=== PATIENT | female | born 1950 | race Two or more races ===

== ENCOUNTER 2021-05-10 21:01 | Inpatient (IN) | payer MEDICAID ==
[~2021-05-10] VITALS: Ht 152.4 cm; Wt 90.9 kg
[2021-05-10] MEDS ORDERED: enalapril PO (21:06)
[2021-05-10] MEDS ORDERED: METO50 PO (21:06)
[2021-05-10] MEDS ORDERED: insulin SQ (21:06)
[2021-05-10] MEDS ORDERED: SODIUM CHLORIDE 0.9% 1,000 ML IV ONE ×2 (22:30→23:00)
[2021-05-10] MEDS ORDERED: ONDANSETRON HCL 4 MG/2 ML VIAL IVP ONE (22:30)
[2021-05-10 22:35] LABS: BASOPHILS % (AUTO) 0.3 % (0.0-2.0); EOSINOPHILS % (AUTO) 0.4 % (1.0-6.0); HEMATOCRIT 43.6 % (36-46); HEMOGLOBIN 14.7 g/dL (12.0-16.0); LYMPHOCYTES # (AUTO) 1.4 K/uL (1.0-4.8); LYMPHOCYTES % (AUTO) 11.8 % (22.0-44.0); MEAN CORPUSCULAR HEMOGLOBIN 30.9 pg (26.0-34.0); MEAN CORPUSCULAR HGB CONC 33.6 G/dL (31.0-37.0); MEAN CORPUSCULAR VOLUME 92 fL (80-100); MONOCYTES # (AUTO) 0.8 K/uL (0.1-1.0); MONOCYTES % (AUTO) 6.5 % (2.0-9.0); NEUTROPHILS # (AUTO) 9.9 K/uL (1.8-7.7); PLATELET COUNT (AUTO) 198 K/uL (150-450); RED BLOOD CELL COUNT(AUTO) 4.74 MIL/uL (4.00-5.20); RED CELL DISTRIBUTION WIDTH 12.4 % (11.5-14.5)
[2021-05-10 22:52] LABS: ALANINE AMINOTRANSFERASE 22 U/L (12-78); ALBUMIN 3.6 g/dL (3.4-5.0); ALKALINE PHOSPHATASE 127 U/L (46-116); ANION GAP 11 mmol/L (8-16); ASPARTATE AMINOTRANSFERASE 18 U/L (15-37); BILIRUBIN,TOTAL 0.4 mg/dL (0.1-1.0); CALCIUM, TOTAL 9.7 mg/dL (8.8-10.5); CARBON DIOXIDE 26 mmol/L (22-29); CHLORIDE 95 mmol/L (98-107); CREATININE 1.67 mg/dL (0.60-1.30); GLOMERULAR FILTR. RATE CALC 30 mL/min (>60); POTASSIUM 4.4 mmol/L (3.5-5.1); SODIUM SERUM 132 mmol/L (136-145); TOTAL PROTEIN, SERUM 8.8 g/dL (6.4-8.2); UREA NITROGEN, BLOOD 41 mg/dL (7-18)
[2021-05-10 22:54] LABS: GLUCOSE,RANDOM 485 mg/dL (70-110)
[2021-05-10] MEDS ORDERED: INSULIN REGULAR, HUMAN 100 UNITS/ML IVP ONE (23:00)
[2021-05-10 23:16] LABS: LIPASE 13770 U/L (73-393)
[2021-05-10] MEDS ORDERED: ACETAMINOPHEN 325 MG TABLET PO PRN (23:30)
[2021-05-10 23:31] LABS: APPEARANCE,URINE CLEAR (CLEAR); BACTERIA,URINE Few /HPF (None Seen); BILIRUBIN,URINE NEGATIVE (NEGATIVE); GLUCOSE, URINE (UA) >=1000 mg/dL (NEGATIVE); KETONES,URINE 15 mg/dL (NEGATIVE); LEUKOCYTE ESTERASE ,URINE NEGATIVE (NEGATIVE); NITRATE,URINE POSITIVE (NEGATIVE); OCCULT BLOOD,URINE TRACE (NEGATIVE); PROTEIN,URINE POS 1+ (NEGATIVE); RBC,URINE 0-2 /HPF (0-2); UROBILINOGEN,URINE 0.2 mg/dL (<=1.0)
[2021-05-10 23:33] LABS: COVID AG,FIA SOURCE NASOPHARYNGEAL
[2021-05-10] MEDS: HYDROmorphone 2 MG/ML VIAL IVP PRN (23:33)
[2021-05-10] MEDS ORDERED: HYDROmorphone 2 MG/ML VIAL IVP ONE (23:45)
[2021-05-10 23:46] LABS: GLUCOMETER DEV NAME(LOC) ERT.5; GLUCOSE,POINT OF CARE 407 MG/DL (70-110)
[2021-05-11] MEDS ORDERED: AZITHROMYCIN 500 MG/NS 250 ML IV ONE (00:30)
[2021-05-11] MEDS ORDERED: CefTRIAXone 1 GM/DEXTROSE 50 ML IV ONE (00:30)
[2021-05-11] MEDS ORDERED: SODIUM CHLORIDE 0.9% 1,000 ML IV ONE (00:30)
[2021-05-11 01:06] LABS: GLUCOMETER DEV NAME(LOC) ERT.5; GLUCOSE,POINT OF CARE 385 MG/DL (70-110)
[2021-05-11 03:30] LABS: INFLUENZA TYPE A NEGATIVE FOR TYPE A (NEGATIVE); INFLUENZA TYPE B NEGATIVE FOR TYPE B (NEGATIVE)
[2021-05-11] MEDS ORDERED: ONDANSETRON HCL 4 MG/2 ML VIAL IVP ONE ×2 (04:00→22:26)
[2021-05-11] MEDS ORDERED: ONDANSETRON HCL 4 MG/2 ML VIAL IVP PRN (04:00)
[2021-05-11 06:26] LABS: GLUCOMETER DEV NAME(LOC) ERT.5; GLUCOSE,POINT OF CARE 405 MG/DL (70-110)
[2021-05-11] MEDS: HYDROmorphone 2 MG/ML VIAL IVP PRN (07:52)
[2021-05-11] MEDS ORDERED: INSULIN LISPRO 100 UNITS/ML SQ ONE (08:30)
[2021-05-11 08:36] LABS: GLUCOSE,POINT OF CARE 376 MG/DL (70-110)
[2021-05-11 08:54] VITALS: BP 157/88
[2021-05-11] MEDS ORDERED: INSULIN GLARGINE,HUM.REC.ANLOG 100 UNITS/ML SQ SCH (09:00)
[2021-05-11] MEDS ORDERED: RINGERS SOLUTION,LACTATED 1,000 ML IV ONE ×2 (09:06→14:57)
[2021-05-11] MEDS ORDERED: BUPIVACAINE 0.25%/EPI 1:200,000/PF 10 ML VIAL ONE ×3 (10:05→12:24)
[2021-05-11] MEDS ORDERED: SODIUM CHLORIDE 0.9% 1,000 ML ONE ×3 (10:05→13:23)
[2021-05-11] MEDS ORDERED: IOHEXOL 240 MG/ML 20 ML VIAL ONE ×2 (10:08→12:24)
[2021-05-11] MEDS ORDERED: PIPERACILLIN SODIUM/TAZOBACTAM 3.375 GM/VIAL TP ONE (10:15)
[2021-05-11 10:26] LABS: GLUCOMETER DEV NAME(LOC) SDS.; GLUCOSE,POINT OF CARE 400 MG/DL (70-110)
[2021-05-11] MEDS ORDERED: INSULIN REGULAR, HUMAN 100 UNITS/ML SQ ONE (10:30)
[2021-05-11] MEDS ORDERED: PIPERACILLIN/TAZO 3.375 GM/D5W 50 ML IV ONE (10:45)
[2021-05-11 11:13] VITALS: BP 135/50
[2021-05-11] MEDS ORDERED: FentaNYL CITRATE PF 100 MCG/2 ML VIAL IVP ONE (12:00)
[2021-05-11] MEDS: RINGERS SOLUTION,LACTATED 1,000 ML IV SCH ×2 (12:27→17:17)
[2021-05-11] MEDS ORDERED: SODIUM CHLORIDE 0.9% 250 ML IV ONE (12:33)
[2021-05-11] MEDS ORDERED: ENAL-90 PO (13:26)
[2021-05-11 14:01] LABS: GLUCOMETER DEV NAME(LOC) 6N.1; GLUCOSE,POINT OF CARE 298 MG/DL (70-110)
[2021-05-11] MEDS ORDERED: HYDROmorphone 2 MG/ML VIAL IVP PRN (14:45)
[2021-05-11] MEDS ORDERED: FentaNYL CITRATE PF 100 MCG/2 ML VIAL IVP PRN (14:45)
[2021-05-11] MEDS ORDERED: SUGAMMADEX SODIUM 200 MG/2 ML VIAL IVP ONE (14:58)
[2021-05-11] MEDS ORDERED: OxyCODONE HCL 5 MG IR TABLET PO PRN (15:30)
[2021-05-11 16:17] VITALS: BP 137/75
[2021-05-11] MEDS: ACETAMINOPHEN 500 MG TABLET PO SCH ×2 (17:14→21:15)
[2021-05-11 19:46] LABS: GLUCOMETER DEV NAME(LOC) 6N.1; GLUCOSE,POINT OF CARE 312 MG/DL (70-110)
[2021-05-11] MEDS: OXYGEN THERAPY IH SCH (20:00)
[2021-05-11] MEDS ORDERED: DEXTROSE 50%-WATER 25 GM/50 ML SYRINGE IVP PRN (20:15)
[2021-05-11] MEDS: INSULIN GLARGINE,HUM.REC.ANLOG 100 UNITS/ML SQ SCH (21:16)
[2021-05-11] MEDS: INSULIN LISPRO 100 UNITS/ML SQ PRN (21:16)
[2021-05-11] MEDS ORDERED: ROCURONIUM BROMIDE 10 MG/ML 5 ML VIAL IVP ONE (22:26)
[2021-05-11] MEDS ORDERED: ESMOLOL HCL 10 MG/ML 10 ML VIAL IVP ONE (22:26)
[2021-05-11] MEDS ORDERED: LIDOCAINE/PF 2% 5 ML SYRINGE IVP ONE (22:26)
[2021-05-11] MEDS ORDERED: ALBUTEROL SULFATE HFA 90 MCG/PUFF 8 GM INHALER IH ONE (22:26)
[2021-05-11] MEDS ORDERED: GLYCOPYRROLATE 0.2 MG/ML VIAL IM ONE (22:26)
[2021-05-11] MEDS ORDERED: PROPOFOL 1% 20 ML VIAL IVP ONE (22:26)
[2021-05-12 01:41] LABS: GLUCOMETER DEV NAME(LOC) 6S.1; GLUCOSE,POINT OF CARE 307 MG/DL (70-110)
[2021-05-12 04:53] VITALS: BP 139/61
[2021-05-12] MEDS: RINGERS SOLUTION,LACTATED 1,000 ML IV SCH (05:29)
[2021-05-12] MEDS: INSULIN LISPRO 100 UNITS/ML SQ PRN ×4 (05:30→21:44)
[2021-05-12 07:06] LABS: GLUCOMETER DEV NAME(LOC) 6N.1; GLUCOSE,POINT OF CARE 257 MG/DL (70-110)
[2021-05-12 07:27] VITALS: BP 126/67
[2021-05-12] MEDS: OXYGEN THERAPY IH SCH ×2 (08:00→20:00)
[2021-05-12] MEDS: INSULIN GLARGINE,HUM.REC.ANLOG 100 UNITS/ML SQ SCH ×2 (08:49→21:42)
[2021-05-12] MEDS: ACETAMINOPHEN 500 MG TABLET PO SCH ×3 (08:51→21:40)
[2021-05-12 10:07] LABS: BASOPHILS % (AUTO) 0.4 % (0.0-2.0); EOSINOPHILS % (AUTO) 0.1 % (1.0-6.0); HEMATOCRIT 39.8 % (36-46); HEMOGLOBIN 13.5 g/dL (12.0-16.0); LYMPHOCYTES # (AUTO) 1.1 K/uL (1.0-4.8); LYMPHOCYTES % (AUTO) 7.2 % (22.0-44.0); MEAN CORPUSCULAR HEMOGLOBIN 31.1 pg (26.0-34.0); MEAN CORPUSCULAR HGB CONC 33.9 G/dL (31.0-37.0); MEAN CORPUSCULAR VOLUME 92 fL (80-100); MONOCYTES # (AUTO) 1.2 K/uL (0.1-1.0); NEUTROPHILS % (AUTO) 84.3 % (40.0-70.0); PLATELET COUNT (AUTO) 156 K/uL (150-450); RED BLOOD CELL COUNT(AUTO) 4.35 MIL/uL (4.00-5.20); RED CELL DISTRIBUTION WIDTH 12.8 % (11.5-14.5)
[2021-05-12 10:23] LABS: ALBUMIN 2.6 g/dL (3.4-5.0); CALCIUM, TOTAL 8.1 mg/dL (8.8-10.5); CREATININE 1.33 mg/dL (0.60-1.30); POTASSIUM 4.2 mmol/L (3.5-5.1); TOTAL PROTEIN, SERUM 6.9 g/dL (6.4-8.2)
[2021-05-12 15:41] LABS: GLUCOMETER DEV NAME(LOC) 6N.1; GLUCOSE,POINT OF CARE 356 MG/DL (70-110)
[2021-05-12 16:00] VITALS: BP 123/63
[2021-05-12] MEDS ORDERED: ONDANSETRON HCL 4 MG/2 ML VIAL IM PRN (18:00)
[2021-05-12] MEDS: ONDANSETRON HCL 4 MG/2 ML VIAL IVP PRN (18:16)
[2021-05-12 19:11] LABS: GLUCOMETER DEV NAME(LOC) 6S.1; GLUCOSE,POINT OF CARE 312 MG/DL (70-110)
[2021-05-12 21:05] VITALS: BP 110/70
[2021-05-12 22:46] LABS: GLUCOMETER DEV NAME(LOC) 6N.1; GLUCOSE,POINT OF CARE 283 MG/DL (70-110)
[2021-05-13] MEDS: INSULIN LISPRO 100 UNITS/ML SQ PRN ×4 (05:06→20:55)
[2021-05-13 05:20] VITALS: BP 113/64
[2021-05-13 06:26] LABS: GLUCOMETER DEV NAME(LOC) 6S.1; GLUCOSE,POINT OF CARE 216 MG/DL (70-110)
[2021-05-13 06:53] LABS: BASOPHILS % (AUTO) 0.3 % (0.0-2.0); EOSINOPHILS % (AUTO) 0.4 % (1.0-6.0); HEMATOCRIT 38.8 % (36-46); HEMOGLOBIN 13.3 g/dL (12.0-16.0); LYMPHOCYTES # (AUTO) 1.6 K/uL (1.0-4.8); LYMPHOCYTES % (AUTO) 10.4 % (22.0-44.0); MEAN CORPUSCULAR HEMOGLOBIN 31.5 pg (26.0-34.0); MEAN CORPUSCULAR HGB CONC 34.3 G/dL (31.0-37.0); MEAN CORPUSCULAR VOLUME 92 fL (80-100); MONOCYTES # (AUTO) 1.2 K/uL (0.1-1.0); MONOCYTES % (AUTO) 8.1 % (2.0-9.0); NEUTROPHILS # (AUTO) 12.3 K/uL (1.8-7.7); NEUTROPHILS % (AUTO) 80.8 % (40.0-70.0); PLATELET COUNT (AUTO) 159 K/uL (150-450); RED BLOOD CELL COUNT(AUTO) 4.24 MIL/uL (4.00-5.20); RED CELL DISTRIBUTION WIDTH 12.5 % (11.5-14.5)
[2021-05-13] MEDS: ONDANSETRON HCL 4 MG/2 ML VIAL IVP PRN (07:30)
[2021-05-13 08:00] VITALS: BP 114/65
[2021-05-13] MEDS: OXYGEN THERAPY IH SCH ×2 (08:00→20:00)
[2021-05-13] MEDS: ACETAMINOPHEN 500 MG TABLET PO SCH ×3 (09:37→20:49)
[2021-05-13] MEDS: INSULIN GLARGINE,HUM.REC.ANLOG 100 UNITS/ML SQ SCH ×2 (09:39→20:54)
[2021-05-13] MEDS: SODIUM CHLORIDE 0.45% 1,000 ML IV SCH (15:20)
[2021-05-13] MEDS: CefTRIAXone 1 GM/DEXTROSE 50 ML IV SCH (15:21)
[2021-05-13 16:00] VITALS: BP 97/62
[2021-05-13 20:03] VITALS: BP 117/57
[2021-05-13 22:50] LABS: GLUCOMETER DEV NAME(LOC) 6N.1; GLUCOSE,POINT OF CARE 258 MG/DL (70-110)
[2021-05-13 22:51] LABS: GLUCOMETER DEV NAME(LOC) 6N.1; GLUCOSE,POINT OF CARE 211 MG/DL (70-110)
[2021-05-13 22:51] LABS: GLUCOMETER DEV NAME(LOC) 6N.1; GLUCOSE,POINT OF CARE 257 MG/DL (70-110)
[2021-05-14 04:44] VITALS: BP 124/82
[2021-05-14] MEDS: SODIUM CHLORIDE 0.45% 1,000 ML IV SCH ×2 (05:58→18:59)
[2021-05-14 06:37] LABS: BASOPHILS % (AUTO) 0.4 % (0.0-2.0); EOSINOPHILS % (AUTO) 1.3 % (1.0-6.0); HEMATOCRIT 38.4 % (36-46); HEMOGLOBIN 13.2 g/dL (12.0-16.0); LYMPHOCYTES # (AUTO) 1.8 K/uL (1.0-4.8); LYMPHOCYTES % (AUTO) 12.7 % (22.0-44.0); MEAN CORPUSCULAR HEMOGLOBIN 31.4 pg (26.0-34.0); MEAN CORPUSCULAR HGB CONC 34.5 G/dL (31.0-37.0); MEAN CORPUSCULAR VOLUME 91 fL (80-100); MONOCYTES # (AUTO) 1.4 K/uL (0.1-1.0); MONOCYTES % (AUTO) 9.5 % (2.0-9.0); NEUTROPHILS % (AUTO) 76.1 % (40.0-70.0); PLATELET COUNT (AUTO) 187 K/uL (150-450); RED BLOOD CELL COUNT(AUTO) 4.21 MIL/uL (4.00-5.20); RED CELL DISTRIBUTION WIDTH 12.5 % (11.5-14.5)
[2021-05-14 06:54] LABS: ALBUMIN 2.2 g/dL (3.4-5.0); BILIRUBIN,TOTAL 0.6 mg/dL (0.1-1.0); CALCIUM, TOTAL 8.1 mg/dL (8.8-10.5); CREATININE 1.19 mg/dL (0.60-1.30); POTASSIUM 4.1 mmol/L (3.5-5.1)
[2021-05-14] MEDS: ONDANSETRON HCL 4 MG/2 ML VIAL IVP PRN (07:53)
[2021-05-14] MEDS: ACETAMINOPHEN 500 MG TABLET PO SCH ×3 (07:54→20:22)
[2021-05-14 07:55] VITALS: BP 124/69
[2021-05-14] MEDS: OXYGEN THERAPY IH SCH (08:00)
[2021-05-14] MEDS: INSULIN GLARGINE,HUM.REC.ANLOG 100 UNITS/ML SQ SCH ×2 (09:00→20:27)
[2021-05-14] MEDS ORDERED: SODIUM CHLORIDE 0.9% 100 ML ONE (11:12)
[2021-05-14] MEDS ORDERED: IOHEXOL 350 MG/ML 100 ML VIAL ONE (11:12)
[2021-05-14] MEDS: INSULIN LISPRO 100 UNITS/ML SQ PRN ×3 (12:55→20:28)
[2021-05-14] MEDS: CefTRIAXone 1 GM/DEXTROSE 50 ML IV SCH (15:11)
[2021-05-14 17:21] LABS: GLUCOMETER DEV NAME(LOC) 6S.1; GLUCOSE,POINT OF CARE 86 MG/DL (70-110)
[2021-05-14 17:22] LABS: GLUCOMETER DEV NAME(LOC) 6S.1; GLUCOSE,POINT OF CARE 178 MG/DL (70-110)
[2021-05-14 17:46] LABS: GLUCOMETER DEV NAME(LOC) 6S.1; GLUCOSE,POINT OF CARE 171 MG/DL (70-110)
[2021-05-14 20:11] VITALS: BP 119/67
[2021-05-15] MEDS: ONDANSETRON HCL 4 MG/2 ML VIAL IVP PRN (02:44)
[2021-05-15 03:01] LABS: GLUCOMETER DEV NAME(LOC) 6S.1; GLUCOSE,POINT OF CARE 197 MG/DL (70-110)
[2021-05-15 04:25] VITALS: BP 115/54
[2021-05-15] MEDS: ACETAMINOPHEN 500 MG TABLET PO SCH ×3 (08:09→21:16)
[2021-05-15] MEDS: SODIUM CHLORIDE 0.45% 1,000 ML IV SCH (08:09)
[2021-05-15] MEDS: OXYGEN THERAPY IH SCH ×3 (08:10→20:00)
[2021-05-15 08:17] LABS: GLUCOMETER DEV NAME(LOC) 6N.1; GLUCOSE,POINT OF CARE 106 MG/DL (70-110)
[2021-05-15 08:21] VITALS: BP 137/71
[2021-05-15] MEDS: INSULIN GLARGINE,HUM.REC.ANLOG 100 UNITS/ML SQ SCH ×2 (08:49→21:16)
[2021-05-15] MEDS: INSULIN LISPRO 100 UNITS/ML SQ PRN ×3 (11:42→21:15)
[2021-05-15 12:32] LABS: GLUCOMETER DEV NAME(LOC) 6N.1; GLUCOSE,POINT OF CARE 175 MG/DL (70-110)
[2021-05-15] MEDS: CefTRIAXone 1 GM/DEXTROSE 50 ML IV SCH (14:49)
[2021-05-15 16:27] VITALS: BP 113/63
[2021-05-15 16:32] LABS: BASOPHILS % (AUTO) 0.2 % (0.0-2.0); EOSINOPHILS % (AUTO) 0.5 % (1.0-6.0); HEMATOCRIT 39.1 % (36-46); HEMOGLOBIN 13.1 g/dL (12.0-16.0); LYMPHOCYTES % (AUTO) 6.8 % (22.0-44.0); MEAN CORPUSCULAR HEMOGLOBIN 30.9 pg (26.0-34.0); MEAN CORPUSCULAR HGB CONC 33.5 G/dL (31.0-37.0); MEAN CORPUSCULAR VOLUME 92 fL (80-100); MONOCYTES % (AUTO) 6.4 % (2.0-9.0); RED BLOOD CELL COUNT(AUTO) 4.24 MIL/uL (4.00-5.20); RED CELL DISTRIBUTION WIDTH 12.7 % (11.5-14.5)
[2021-05-15 16:34] LABS: NEUTROPHILS % (AUTO) 86.1 % (40.0-70.0)
[2021-05-15 16:42] LABS: AMYLASE 25 U/L (25-115); LIPASE 46 U/L (73-393)
[2021-05-15 19:59] LABS: PLATELET COUNT (AUTO) 153 K/uL (150-450)
[2021-05-15 20:01] LABS: GLUCOMETER DEV NAME(LOC) 6S.1; GLUCOSE,POINT OF CARE 186 MG/DL (70-110)
[2021-05-15 21:22] VITALS: BP 136/95
[2021-05-15] MEDS: LOPERAMIDE HCL 2 MG CAPSULE PO PRN (21:54)
[2021-05-16 00:26] LABS: GLUCOMETER DEV NAME(LOC) 6N.1; GLUCOSE,POINT OF CARE 178 MG/DL (70-110)
[2021-05-16 01:02] LABS: C.DIFF GDH ANTIGEN, Stool Positive (Negative)
[2021-05-16 01:03] LABS: C.DIFF TOXINS A&B, Stool Positive (Negative)
[2021-05-16] MEDS: SODIUM CHLORIDE 0.45% 1,000 ML IV SCH ×3 (01:48→23:35)
[2021-05-16 04:30] VITALS: BP 125/70
[2021-05-16 08:02] VITALS: BP 114/60
[2021-05-16 08:02] LABS: GLUCOMETER DEV NAME(LOC) 6N.1; GLUCOSE,POINT OF CARE 73 MG/DL (70-110)
[2021-05-16] MEDS: LOPERAMIDE HCL 2 MG CAPSULE PO PRN (08:02)
[2021-05-16] MEDS: ACETAMINOPHEN 500 MG TABLET PO SCH ×3 (08:02→20:22)
[2021-05-16] MEDS: MetroNIDAZOLE 500 MG TABLET PO SCH ×2 (08:02→15:38)
[2021-05-16] MEDS: INSULIN GLARGINE,HUM.REC.ANLOG 100 UNITS/ML SQ SCH ×2 (08:03→20:28)
[2021-05-16] MEDS: OXYGEN THERAPY IH SCH ×2 (08:08→20:00)
[2021-05-16 12:36] LABS: GLUCOMETER DEV NAME(LOC) 6N.1; GLUCOSE,POINT OF CARE 111 MG/DL (70-110)
[2021-05-16 13:30] LABS: BASOPHILS % (AUTO) 0.3 % (0.0-2.0); EOSINOPHILS % (AUTO) 0.4 % (1.0-6.0); HEMATOCRIT 36.2 % (36-46); LYMPHOCYTES # (AUTO) 1.1 K/uL (1.0-4.8); LYMPHOCYTES % (AUTO) 6.5 % (22.0-44.0); MEAN CORPUSCULAR HEMOGLOBIN 30.1 pg (26.0-34.0); MEAN CORPUSCULAR HGB CONC 33.3 G/dL (31.0-37.0); MEAN CORPUSCULAR VOLUME 91 fL (80-100); MONOCYTES % (AUTO) 6.3 % (2.0-9.0); NEUTROPHILS # (AUTO) 14.4 K/uL (1.8-7.7); PLATELET COUNT (AUTO) 232 K/uL (150-450); RED BLOOD CELL COUNT(AUTO) 3.99 MIL/uL (4.00-5.20); RED CELL DISTRIBUTION WIDTH 12.9 % (11.5-14.5)
[2021-05-16 13:31] LABS: NEUTROPHILS % (AUTO) 86.5 % (40.0-70.0)
[2021-05-16] MEDS: CefTRIAXone 1 GM/DEXTROSE 50 ML IV SCH (15:38)
[2021-05-16 16:15] VITALS: BP 94/56
[2021-05-16 17:25] LABS: GLUCOMETER DEV NAME(LOC) 6S.1; GLUCOSE,POINT OF CARE 113 MG/DL (70-110)
[2021-05-16 19:46] VITALS: BP 93/48
[2021-05-16] MEDS: INSULIN LISPRO 100 UNITS/ML SQ PRN (20:28)
[2021-05-16] MEDS: ONDANSETRON HCL 4 MG/2 ML VIAL IVP PRN (20:28)
[2021-05-16 22:16] LABS: GLUCOMETER DEV NAME(LOC) 6N.1; GLUCOSE,POINT OF CARE 203 MG/DL (70-110)
[2021-05-17] MEDS: MetroNIDAZOLE 500 MG TABLET PO SCH ×4 (00:47→23:05)
[2021-05-17 05:12] VITALS: BP 110/60
[2021-05-17] MEDS: INSULIN LISPRO 100 UNITS/ML SQ PRN ×2 (06:12→12:02)
[2021-05-17 06:51] LABS: BASOPHILS % (AUTO) 0.2 % (0.0-2.0); EOSINOPHILS % (AUTO) 1.2 % (1.0-6.0); HEMATOCRIT 36.4 % (36-46); HEMOGLOBIN 12.3 g/dL (12.0-16.0); LYMPHOCYTES # (AUTO) 1.2 K/uL (1.0-4.8); LYMPHOCYTES % (AUTO) 5.7 % (22.0-44.0); MEAN CORPUSCULAR HEMOGLOBIN 30.7 pg (26.0-34.0); MEAN CORPUSCULAR HGB CONC 33.7 G/dL (31.0-37.0); MEAN CORPUSCULAR VOLUME 91 fL (80-100); MONOCYTES # (AUTO) 1.5 K/uL (0.1-1.0); MONOCYTES % (AUTO) 7.2 % (2.0-9.0); NEUTROPHILS # (AUTO) 17.8 K/uL (1.8-7.7); PLATELET COUNT (AUTO) 248 K/uL (150-450); RED BLOOD CELL COUNT(AUTO) 4.01 MIL/uL (4.00-5.20)
[2021-05-17 06:52] LABS: NEUTROPHILS % (AUTO) 85.7 % (40.0-70.0)
[2021-05-17 07:16] LABS: ALBUMIN 1.6 g/dL (3.4-5.0); BILIRUBIN,TOTAL 0.4 mg/dL (0.1-1.0); CALCIUM, TOTAL 7.9 mg/dL (8.8-10.5); CREATININE 1.67 mg/dL (0.60-1.30); POTASSIUM 3.3 mmol/L (3.5-5.1); TOTAL PROTEIN, SERUM 6.2 g/dL (6.4-8.2)
[2021-05-17 07:46] LABS: GLUCOMETER DEV NAME(LOC) 6N.1; GLUCOSE,POINT OF CARE 147 MG/DL (70-110)
[2021-05-17 08:06] VITALS: BP 119/54
[2021-05-17] MEDS ORDERED: POTASSIUM CHLORIDE 20 MEQ ER TABLET PO ONE (08:45)
[2021-05-17] MEDS: LOPERAMIDE HCL 2 MG CAPSULE PO PRN (08:48)
[2021-05-17] MEDS: ACETAMINOPHEN 500 MG TABLET PO SCH ×3 (08:48→20:16)
[2021-05-17] MEDS: INSULIN GLARGINE,HUM.REC.ANLOG 100 UNITS/ML SQ SCH ×2 (08:50→20:16)
[2021-05-17] MEDS: OXYGEN THERAPY IH SCH ×2 (08:58→20:12)
[2021-05-17 12:16] LABS: GLUCOMETER DEV NAME(LOC) 6N.1; GLUCOSE,POINT OF CARE 146 MG/DL (70-110)
[2021-05-17] MEDS: CefTRIAXone 1 GM/DEXTROSE 50 ML IV SCH (15:11)
[2021-05-17] MEDS: SODIUM CHLORIDE 0.45% 1,000 ML IV SCH (15:12)
[2021-05-17 16:14] VITALS: BP 100/57
[2021-05-17 18:47] LABS: GLUCOMETER DEV NAME(LOC) 6N.1; GLUCOSE,POINT OF CARE 138 MG/DL (70-110)
[2021-05-17 20:38] VITALS: BP_SYST 107; BP_SYST 119; BP_DIAS 57; BP_DIAS 69
[2021-05-18 02:51] LABS: GLUCOMETER DEV NAME(LOC) 6S.1; GLUCOSE,POINT OF CARE 81 MG/DL (70-110)
[2021-05-18] MEDS: SODIUM CHLORIDE 0.45% 1,000 ML IV SCH ×2 (04:37→10:11)
[2021-05-18 05:33] VITALS: BP 109/63
[2021-05-18 06:56] LABS: GLUCOMETER DEV NAME(LOC) 6N.1; GLUCOSE,POINT OF CARE 149 MG/DL (70-110)
[2021-05-18] MEDS: OXYGEN THERAPY IH SCH ×2 (08:00→21:20)
[2021-05-18 08:13] VITALS: BP 97/54
[2021-05-18] MEDS: MetroNIDAZOLE 500 MG TABLET PO SCH ×3 (08:38→23:05)
[2021-05-18] MEDS: ACETAMINOPHEN 500 MG TABLET PO SCH ×3 (08:39→21:18)
[2021-05-18] MEDS: INSULIN GLARGINE,HUM.REC.ANLOG 100 UNITS/ML SQ SCH ×2 (08:42→21:00)
[2021-05-18] MEDS: INSULIN LISPRO 100 UNITS/ML SQ PRN (11:27)
[2021-05-18 11:52] LABS: GLUCOMETER DEV NAME(LOC) 6S.1; GLUCOSE,POINT OF CARE 266 MG/DL (70-110)
[2021-05-18 11:52] LABS: GLUCOMETER DEV NAME(LOC) 6S.1; GLUCOSE,POINT OF CARE 61 MG/DL (70-110)
[2021-05-18] MEDS: VANCOMYCIN HCL 125 MG/2.5 ML SOLUTION ORAL.SYG PO SCH ×2 (17:26→21:19)
[2021-05-18 19:45] LABS: GLUCOMETER DEV NAME(LOC) 6N.1; GLUCOSE,POINT OF CARE 99 MG/DL (70-110)
[2021-05-18 20:45] VITALS: BP 117/62
[2021-05-19 00:06] LABS: GLUCOMETER DEV NAME(LOC) 6N.1; GLUCOSE,POINT OF CARE 134 MG/DL (70-110)
[2021-05-19] MEDS: SODIUM CHLORIDE 0.45% 1,000 ML IV SCH (03:35)
[2021-05-19 04:23] VITALS: BP 120/55
[2021-05-19 06:37] LABS: GLUCOMETER DEV NAME(LOC) 6N.2; GLUCOSE,POINT OF CARE 128 MG/DL (70-110)
[2021-05-19 08:00] VITALS: BP 113/60
[2021-05-19] MEDS: OXYGEN THERAPY IH SCH (08:00)
[2021-05-19] MEDS: NYSTATIN 15 GM POWDER BOTTLE TP PRN (08:57)
[2021-05-19] MEDS: ACETAMINOPHEN 500 MG TABLET PO SCH ×3 (08:57→20:48)
[2021-05-19] MEDS: VANCOMYCIN HCL 125 MG/2.5 ML SOLUTION ORAL.SYG PO SCH ×4 (08:57→20:43)
[2021-05-19] MEDS: INSULIN GLARGINE,HUM.REC.ANLOG 100 UNITS/ML SQ SCH ×2 (09:11→21:20)
[2021-05-19 10:35] LABS: BASOPHILS % (AUTO) 0.6 % (0.0-2.0); EOSINOPHILS % (AUTO) 2.1 % (1.0-6.0); HEMATOCRIT 37.2 % (36-46); HEMOGLOBIN 12.3 g/dL (12.0-16.0); LYMPHOCYTES # (AUTO) 1.4 K/uL (1.0-4.8); LYMPHOCYTES % (AUTO) 9.9 % (22.0-44.0); MEAN CORPUSCULAR HEMOGLOBIN 30.4 pg (26.0-34.0); MEAN CORPUSCULAR VOLUME 92 fL (80-100); MONOCYTES % (AUTO) 7.6 % (2.0-9.0); NEUTROPHILS % (AUTO) 79.8 % (40.0-70.0); PLATELET COUNT (AUTO) 338 K/uL (150-450); RED BLOOD CELL COUNT(AUTO) 4.03 MIL/uL (4.00-5.20); RED CELL DISTRIBUTION WIDTH 13.5 % (11.5-14.5)
[2021-05-19 10:49] LABS: ALBUMIN 1.7 g/dL (3.4-5.0); BILIRUBIN,TOTAL 0.3 mg/dL (0.1-1.0); CALCIUM, TOTAL 7.7 mg/dL (8.8-10.5); CREATININE 1.25 mg/dL (0.60-1.30); POTASSIUM 3.9 mmol/L (3.5-5.1); TOTAL PROTEIN, SERUM 6.4 g/dL (6.4-8.2)
[2021-05-19] MEDS: INSULIN LISPRO 100 UNITS/ML SQ PRN ×3 (11:46→21:19)
[2021-05-19 13:06] LABS: GLUCOMETER DEV NAME(LOC) 6N.1; GLUCOSE,POINT OF CARE 281 MG/DL (70-110)
[2021-05-19 13:06] LABS: GLUCOMETER DEV NAME(LOC) 6N.2; GLUCOSE,POINT OF CARE 338 MG/DL (70-110)
[2021-05-19 16:37] VITALS: BP 119/72
[2021-05-19 20:16] LABS: GLUCOMETER DEV NAME(LOC) 6N.2; GLUCOSE,POINT OF CARE 147 MG/DL (70-110)
[2021-05-19 20:50] VITALS: BP 118/67
[2021-05-20 01:46] LABS: GLUCOMETER DEV NAME(LOC) 6N.2; GLUCOSE,POINT OF CARE 321 MG/DL (70-110)
[2021-05-20 04:45] VITALS: BP 127/77
[2021-05-20 07:36] VITALS: BP 123/68
[2021-05-20] MEDS: OXYGEN THERAPY IH SCH ×2 (07:43→20:00)
[2021-05-20] MEDS: VANCOMYCIN HCL 125 MG/2.5 ML SOLUTION ORAL.SYG PO SCH ×4 (09:07→20:55)
[2021-05-20] MEDS: ACETAMINOPHEN 500 MG TABLET PO SCH ×3 (09:07→20:54)
[2021-05-20] MEDS: INSULIN GLARGINE,HUM.REC.ANLOG 100 UNITS/ML SQ SCH ×2 (09:09→21:03)
[2021-05-20] MEDS: INSULIN LISPRO 100 UNITS/ML SQ PRN ×3 (11:21→21:04)
[2021-05-20] MEDS: NYSTATIN 15 GM POWDER BOTTLE TP PRN (11:29)
[2021-05-20 15:30] VITALS: BP 115/66
[2021-05-20 18:01] LABS: GLUCOMETER DEV NAME(LOC) 6N.1; GLUCOSE,POINT OF CARE 222 MG/DL (70-110)
[2021-05-20 19:01] LABS: GLUCOMETER DEV NAME(LOC) 6N.2; GLUCOSE,POINT OF CARE 116 MG/DL (70-110)
[2021-05-20 19:01] LABS: GLUCOMETER DEV NAME(LOC) 6N.2; GLUCOSE,POINT OF CARE 264 MG/DL (70-110)
[2021-05-20 20:07] VITALS: BP 113/70
[2021-05-20] MEDS: MICONAZOLE NITRATE 2% 30 GM CREAM TP SCH (20:55)
[2021-05-20 21:31] LABS: GLUCOMETER DEV NAME(LOC) 6N.2; GLUCOSE,POINT OF CARE 361 MG/DL (70-110)
[2021-05-21 04:26] VITALS: BP 117/67
[2021-05-21] MEDS: OXYGEN THERAPY IH SCH (07:43)
[2021-05-21 08:30] VITALS: BP 151/81
[2021-05-21] MEDS: MICONAZOLE NITRATE 2% 30 GM CREAM TP SCH (08:44)
[2021-05-21] MEDS: VANCOMYCIN HCL 125 MG/2.5 ML SOLUTION ORAL.SYG PO SCH ×3 (08:44→16:05)
[2021-05-21] MEDS: ACETAMINOPHEN 500 MG TABLET PO SCH ×2 (08:44→16:05)
[2021-05-21] MEDS: INSULIN GLARGINE,HUM.REC.ANLOG 100 UNITS/ML SQ SCH (08:47)
[2021-05-21] MEDS: INSULIN LISPRO 100 UNITS/ML SQ PRN (12:04)
[2021-05-21 13:56] LABS: GLUCOMETER DEV NAME(LOC) 6N.1; GLUCOSE,POINT OF CARE 134 MG/DL (70-110)
[2021-05-21 13:56] LABS: GLUCOMETER DEV NAME(LOC) 6N.2; GLUCOSE,POINT OF CARE 279 MG/DL (70-110)
[2021-05-21] MEDS ORDERED: MICO14CR6 TP (14:05)
[2021-05-21] MEDS ORDERED: ENAL2.5T39 PO (14:05)
[2021-05-21] MEDS ORDERED: VANCOPO PO (14:05)
[2021-05-21] MEDS ORDERED: INSLAN SQ (14:05)
[2021-05-21 15:57] VITALS: BP 169/82
== END 2021-05-21 16:15 | disposition home or self-care (01) | DRG 263 ==
LOC: EMS 21:02 → 6S 05-11 06:18
PROVIDERS: ADMIT Hospitalist; ATTEND Hospitalist
PROC: BF131ZZ Fluoroscopy of Gallbladder and Bile Ducts using Low Osmolar Contrast (ICD-10-PCS; 2021-05-11)
PROC: 0FT44ZZ Resection of Gallbladder, Percutaneous Endoscopic Approach (ICD-10-PCS; principal; 2021-05-11 14:00)
DX: K80.00 Calculus of gallbladder with acute cholecystitis without obstruction (principal); R65.11 Systemic inflammatory response syndrome (SIRS) of non-infectious origin with acute organ dysfunction; K85.10 Biliary acute pancreatitis without necrosis or infection; E43 Unspecified severe protein-calorie malnutrition; N17.9 Acute kidney failure, unspecified; A04.72 Enterocolitis due to Clostridium difficile, not specified as recurrent; R18.8 Other ascites; E11.22 Type 2 diabetes mellitus with diabetic chronic kidney disease; E87.1 Hypo-osmolality and hyponatremia; K56.7 Ileus, unspecified; E86.0 Dehydration; Z20.822 Contact with and (suspected) exposure to COVID-19; E11.65 Type 2 diabetes mellitus with hyperglycemia; N18.30 Chronic kidney disease, stage 3 unspecified; L53.8 Other specified erythematous conditions; I12.9 Hypertensive chronic kidney disease with stage 1 through stage 4 chronic kidney disease, or unspecified chronic kidney disease; R00.0 Tachycardia, unspecified; I25.10 Atherosclerotic heart disease of native coronary artery without angina pectoris; E78.5 Hyperlipidemia, unspecified; E66.9 Obesity, unspecified; R74.8 Abnormal levels of other serum enzymes; E87.6 Hypokalemia; Z53.20 Procedure and treatment not carried out because of patient's decision for unspecified reasons; Z90.710 Acquired absence of both cervix and uterus; I25.2 Old myocardial infarction; Z68.39 Body mass index [BMI] 39.0-39.9, adult; Z79.899 Other long term (current) drug therapy; Z79.4 Long term (current) use of insulin
CPT/HCPCS: 71045; 74019; 74177; 76700; 80053; 81001; 82150; 82962; 83605; 83690; 84132; 84484; 85025; 87040; 87081; 87324; 87449; 87804; 88304; 93005; 93306; 99291; G0238; G0480; J0456; J0696; J1170; J1815; J2405; J2543; J2704; J3010; J3490; J3535; J7030; J7050; J7120; Q9966; Q9967; 36415-L1; 36415-TC; U0003; Z7610